=== PATIENT | female | born 1950 | race Caucasian/White ===

== ENCOUNTER 2016-07-07 14:09 | Emergency (ER) | payer MEDICARE, OTHER ==
[2016-07-07] MEDS ORDERED: ONDANSETRON 4 MG TAB.RAPDIS SL ONE (15:01)
--- NOTE | 2016-07-07 15:01 | ER Document Report ---
ED Medical Screen (RME) - General Chief Complaint: Abdominal Pain Stated Complaint: ABDOMINAL PAIN Time seen by provider: 15:00 Mode of Arrival: Ambulatory Information source: Patient TRAVEL OUTSIDE OF THE U.S[place] IN LAST 30 DAYS: No - HPI Patient complains to provider of: right upper quadrant pain, nausea vomiting, dysuria Onset: Other - 3 weeks with worsening over the past 3 days Onset/Duration: Persistent, Worse Quality of pain: Sharp Severity: Moderate Pain Level: 4 Associated Symptoms: Chills, Dysuria, Nausea, Vomiting Exacerbated by: Denies Relieved by: Denies Similar symptoms previously: No Recently seen / treated by doctor: Yes Notes: 07/07/16 15:00 Patient is a 66-year-old female sent from the [place] for complaints of right upper quadrant abdominal pain with nausea and vomiting, abdominal pain started approximately 3 weeks ago, nausea and vomiting started 3 days ago, she reports chills but did not take her temperature at home, history of a complete hysterectomy - Related Data Allergies/Adverse Reactions: levofloxacin [From Levaquin] Allergy (Severe, Verified 07/07/16 14:17) Anaphylaxis sulfamethoxazole [From Bactrim] Allergy (Severe, Verified 07/07/16 14:17) Anaphylaxis triamcinolone acetonide [From Kenalog] Allergy (Severe, Verified 07/07/16 14:17) Anaphylaxis trimethoprim [From Bactrim] Allergy (Severe, Verified 07/07/16 14:17) Anaphylaxis cephalexin monohydrate [From Keflex] Allergy (Intermediate, Verified 07/07/16 14 :17) Flushing latex [Latex] Allergy (Intermediate, Verified 07/07/16 14:17) Blisters prednisone [Prednisone] Allergy (Intermediate, Verified 07/07/16 14:17) Flushing Past Medical History - Past Medical History Cardiac Medical History: Reports: Hx Hypercholesterolemia, Hx Hypertension Denies: Hx Atrial Fibrillation, Hx Congestive Heart Failure, Hx Coronary Artery Disease, Hx Heart Attack, Hx Peripheral Vascular Disease, Hx Pulmonary Embolism, Hx Heart Murmur Pulmonary Medical History: Reports: Hx Asthma, Hx Bronchitis, Hx COPD, Hx Pneumonia Denies: Hx Respiratory Failure, Hx Sleep Apnea, Hx Tuberculosis Neurological Medical History: Denies: Hx Cerebrovascular Accident, Hx Seizures Endocrine Medical History: Reports: Hx Hypothyroidism. Denies: Hx Graves' Disease, Hx Hyperthyroidism Renal/ Medical History: Reports: Hx Ovarian Cysts. Denies: Hx End Stage Renal Disease, Hx Kidney Stones, Hx Peritoneal Dialysis, Hx Pelvic Inflammatory Disease Malignancy Medical History: Denies: Hx Breast Cancer, Hx Cervical Cancer, Hx Leukemia, Hx Lung Cancer, Hx Ovarian Cancer GI Medical History: Reports: Hx Gastroesophageal Reflux Disease, Hx Hiatal Hernia, Hx Irritable Bowel. Denies: Hx Crohn's Disease, Hx Liver Failure, Hx Ulcer Musculoskeltal Medical History: Reports Hx Arthritis - hands, knees, spine, Denies Hx Fibromyalgia, Denies Hx Multiple Sclerosis, Denies Hx Muscular Dystrophy Psychiatric Medical History: Reports: Hx Bipolar Disorder, Hx Depression, Hx Post Traumatic Stress Disorder Denies: Hx Dementia, Hx Schizophrenia Traumatic Medical History: Reports: Hx Fractures Infectious Medical History: Denies: Hx HIV Past Surgical History: Reports: Hx Tonsillectomy - 1953. Denies: Hx Appendectomy, Hx Bowel Surgery, Hx Colostomy, Hx Coronary Artery Bypass Graft, Hx Gastric Bypass Surgery, Hx Hysterectomy, Hx Mastectomy, Hx Pacemaker - Immunizations Hx Diphtheria, Pertussis, Tetanus Vaccination: Yes - 03/07/04 Physical Exam - Vital signs Vitals: Temp Pulse Resp BP Pulse Ox 98.3 F 80 18 156/80 H 98 07/07/16 14:17 07/07/16 14:17 07/07/16 14:17 07/07/16 14:17 07/07/16 14:17 Course - Vital Signs Vital signs: Temp Pulse Resp BP Pulse Ox 98.3 F 80 18 156/80 H 98 07/07/16 14:17 07/07/16 14:17 07/07/16 14:17 07/07/16 14:17 07/07/16 14:17
[2016-07-07 15:25] LABS: ABSOLUTE EOSINOPHILS # (AUTO) 0.1 10^3/uL (0.0-0.6); ABSOLUTE LYMPHOCYTES (AUTO) 3.4 10^3/uL (0.5-4.7); ABSOLUTE MONOCYTES (AUTO) 0.4 10^3/uL (0.1-1.4); ABSOLUTE NEUT (AUTO) 4.3 10^3/uL (1.7-8.2); BASOPHILS % (AUTO) 0.3 % (0-2); EOSINOPHILS % (AUTO) 1.2 % (0-6); HEMATOCRIT 38.3 % (36.0-47.0); HEMOGLOBIN 12.9 g/dL (12.0-15.5); HGB HCT DIFFERENCE 0.4; MEAN CORPUSCULAR HEMOGLOBIN 30.9 pg (27.0-33.4); MEAN CORPUSCULAR HGB CONC 33.7 g/dL (32.0-36.0); MEAN CORPUSCULAR VOLUME 92 fl (80-97); MONOCYTES % (AUTO) 5.3 % (3-13); RED BLOOD COUNT 4.18 10^6/uL (3.72-5.28); RED CELL DISTRIBUTION WIDTH 13.9 % (11.5-14.0); SEGMENTED NEUTROPHILS % (AUTO) 52.2 % (42-78); WHITE BLOOD COUNT 8.2 10^3/uL (4.0-10.5)
[2016-07-07 15:46] LABS: ALANINE AMINOTRANSFERASE 42 U/L (9-52); ALBUMIN 4.5 g/dL (3.5-5.0); ALKALINE PHOSPHATASE 94 U/L (38-126); ANION GAP 15 (5-19); ASPARTATE AMINO TRANSFERASE 37 U/L (14-36); BILIRUBIN,DIRECT 0.2 mg/dL (0.0-0.4); BILIRUBIN,TOTAL 0.4 mg/dL (0.2-1.3); BLOOD UREA NITROGEN 18 mg/dL (7-20); CALCIUM 10.1 mg/dL (8.4-10.2); CARBON DIOXIDE 27 mmol/L (22-30); CHLORIDE 104 mmol/L (98-107); CREATININE RESULT 0.74 mg/dL (0.52-1.25); GLUCOSE 109 mg/dL (75-110); LIPASE 89.7 U/L (23-300); POTASSIUM 4.1 mmol/L (3.6-5.0); SODIUM 145.5 mmol/L (137-145); TOTAL PROTEIN 7.8 g/dL (6.3-8.2)
--- NOTE | 2016-07-07 17:03 | ER Document Report ---
ED GI/ - General Chief Complaint: Abdominal Pain Stated Complaint: ABDOMINAL PAIN Mode of Arrival: Ambulatory Notes: Patient is a 66-year-old female who presents emergency department after referral from the [place] [facility]. Patient states that she has had a three-week history of her quadrant abdominal pain that gets worse postprandial. With associated nausea and vomiting. She denies any diarrhea, hematemesis or hematochezia, bright red blood per rectum. She also admits to generalized weakness and malaise. She denies any fevers. Admits to chills. She also admits to dysuria and urgency. Denies pyuria. Denies any history of gallbladder disease. Still has her gallbladder and appendix. Past medical history significant for hypothyroidism on levothyroxine, bipolar disorder on gabapentin Past surgical history significant for hysterectomy, spinal fusion and cervical and lumbar. Primary care is at the [place] TRAVEL OUTSIDE OF THE [place] IN LAST 30 DAYS: No - Related Data Allergies/Adverse Reactions: levofloxacin [From Levaquin] Allergy (Severe, Verified 07/07/16 14:17) Anaphylaxis sulfamethoxazole [From Bactrim] Allergy (Severe, Verified 07/07/16 14:17) Anaphylaxis triamcinolone acetonide [From Kenalog] Allergy (Severe, Verified 07/07/16 14:17) Anaphylaxis trimethoprim [From Bactrim] Allergy (Severe, Verified 07/07/16 14:17) Anaphylaxis cephalexin monohydrate [From Keflex] Allergy (Intermediate, Verified 07/07/16 14 :17) Flushing latex [Latex] Allergy (Intermediate, Verified 07/07/16 14:17) Blisters prednisone [Prednisone] Allergy (Intermediate, Verified 07/07/16 14:17) Flushing Past Medical History - General Information source: Patient - Social History Smoking Status: Never Smoker Family History: Reviewed & Not Pertinent Patient has suicidal ideation: No Patient has homicidal ideation: No - Past Medical History Cardiac Medical History: Reports: Hx Hypercholesterolemia, Hx Hypertension Denies: Hx Atrial Fibrillation, Hx Congestive Heart Failure, Hx Coronary Artery Disease, Hx Heart Attack, Hx Peripheral Vascular Disease, Hx Pulmonary Embolism, Hx Heart Murmur Pulmonary Medical History: Reports: Hx Asthma, Hx Bronchitis, Hx COPD, Hx Pneumonia Denies: Hx Respiratory Failure, Hx Sleep Apnea, Hx Tuberculosis Neurological Medical History: Denies: Hx Cerebrovascular Accident, Hx Seizures Endocrine Medical History: Reports: Hx Hypothyroidism. Denies: Hx Graves' Disease, Hx Hyperthyroidism Renal/ Medical History: Reports: Hx Ovarian Cysts. Denies: Hx End Stage Renal Disease, Hx Kidney Stones, Hx Peritoneal Dialysis, Hx Pelvic Inflammatory Disease Malignancy Medical History: Denies: Hx Breast Cancer, Hx Cervical Cancer, Hx Leukemia, Hx Lung Cancer, Hx Ovarian Cancer GI Medical History: Reports: Hx Gastroesophageal Reflux Disease, Hx Hiatal Hernia, Hx Irritable Bowel. Denies: Hx Crohn's Disease, Hx Liver Failure, Hx Ulcer Musculoskeltal Medical History: Reports Hx Arthritis - hands, knees, spine, Denies Hx Fibromyalgia, Denies Hx Multiple Sclerosis, Denies Hx Muscular Dystrophy Psychiatric Medical History: Reports: Hx Bipolar Disorder, Hx Depression, Hx Post Traumatic Stress Disorder Denies: Hx Dementia, Hx Schizophrenia Traumatic Medical History: Reports: Hx Fractures Infectious Medical History: Denies: Hx HIV Past Surgical History: Reports: Hx Tonsillectomy - 1953. Denies: Hx Appendectomy, Hx Bowel Surgery, Hx Colostomy, Hx Coronary Artery Bypass Graft, Hx Gastric Bypass Surgery, Hx Hysterectomy, Hx Mastectomy, Hx Pacemaker - Immunizations Hx Diphtheria, Pertussis, Tetanus Vaccination: Yes - 03/07/04 Hx Pneumococcal Vaccination: 12/06/15 Review of Systems - Review of Systems Constitutional: See HPI Cardiovascular: No symptoms reported Respiratory: No symptoms reported Gastrointestinal: See HPI -: Yes All other systems reviewed and negative Physical Exam - Vital signs Vitals: Temp Pulse Resp BP Pulse Ox 98.3 F 80 18 156/80 H 98 07/07/16 14:17 07/07/16 14:17 07/07/16 14:17 07/07/16 14:17 07/07/16 14:17 - Notes Notes: PHYSICAL EXAM GENERAL: Alert, interacts well. HEAD: Normocephalic, atraumatic. EYES: Pupils equal, round, and reactive to light. Extraocular movements intact. ENT: Oral mucosa moist, tongue midline. NECK: Full range of motion. Supple. Trachea midline. LUNGS: Clear to auscultation bilaterally, no wheezes, rales, or rhonchi. No respiratory distress. HEART: Regular rate and rhythm. No murmurs, gallops, or rubs. ABDOMEN: Soft, nondistended, mild tenderness to palpation of the right upper quadrant. Positive Gómez sign. Otherwise abdomen nontender. No guarding, rebound, or rigidity.. Bowel sounds present in all 4 quadrants. EXTREMITIES: Moves all 4 extremities spontaneously. No edema, radial and dorsalis pedis pulses 2/4 bilaterally. No cyanosis. NEUROLOGICAL: Alert and oriented x4. Normal speech. PSYCH: Normal affect, normal mood. SKIN: Warm, dry, normal turgor. No rashes or lesions noted. Course - Re-evaluation Re-evalutation: 07/07/16 18:16 Patient is a 66 year old female who is hemodynamically stable, no acute distress and afebrile. Labs within normal limits, no concern for leukocytosis, anemia, electrolyte abnormalities, liver/kidney/pancreatic dysfunction. Ultrasound of the right upper quadrant shows sludge within the gallbladder but otherwise no stones within the gallbladder or common bile duct. Patient is tolerating by mouth without any difficulty. Pain is well controlled. We'll discharge home with [facility] - Vital Signs Vital signs: Temp Pulse Resp BP Pulse Ox 98.3 F 80 18 156/80 H 98 07/07/16 14:17 07/07/16 14:17 07/07/16 14:17 07/07/16 14:17 07/07/16 14:17 - Laboratory Result Diagrams: 07/07/16 15:10 07/07/16 15:10 Laboratory results interpreted by me: 07/07/16 15:10 Sodium 145.5 H AST 37 H - Diagnostic Test Radiology reviewed: Reports reviewed Discharge - Discharge Clinical Impression: Gall bladder disease Condition: Good Disposition: HOME, SELF-CARE Instructions: Gallbladder Disease ([facility]), Low-Fat Diet ([facility]) Additional Instructions: [facility] regarding your visit this week or next Prescriptions: Ondansetron [Zofran Odt 4 mg Tablet] 1 - 2 tab PO Q4H PRN #15 tab.rapdis PRN Reason: For Nausea/Vomiting Oxycodone HCl/Acetaminophen [Percocet 5-325 mg Tablet] 1 - 2 tab PO Q4H PRN #10 tablet PRN Reason: Promethazine HCl [Phenergan 25 mg Tablet] 1 - 2 tab PO Q6H PRN #15 tablet PRN Reason: Forms: Elevated Blood Pressure Referrals: MICKEY ROSA MD [ACTIVE STAFF] - Follow up as needed
[2016-07-07 17:05] LABS: APPEARANCE,URINE CLEAR; BILIRUBIN,URINE NEGATIVE (NEGATIVE); GLUCOSE, URINE NEGATIVE (NEGATIVE); KETONES,URINE NEGATIVE (NEGATIVE); LEUKOCYTE ESTERASE,URINE NEGATIVE (NEGATIVE); NITRITE,URINE NEGATIVE (NEGATIVE); PROTEIN,URINE NEGATIVE (NEGATIVE); URINE SPECIFIC GRAVITY 1.004; UROBILINOGEN,URINE NEGATIVE mg/dL (<2.0)
--- NOTE | 2016-07-07 18:58 | EKG REPORT ---
SEVERITY:- ABNORMAL ECG - SINUS RHYTHM LEFT VENTRICULAR HYPERTROPHY : Confirmed by: Gildardo Costello MD 07-Jul-2016 18:57:48
[2016-07-08 11:37] VITALS: BP 152/81
== END 2016-07-07 17:58 | disposition home or self-care (01) ==
LOC: ER 14:09
DX: K82.8 Other specified diseases of gallbladder (principal); R10.9 Unspecified abdominal pain; R10.811 Right upper quadrant abdominal tenderness; R11.2 Nausea with vomiting, unspecified; R53.1 Weakness; R53.81 Other malaise; R68.83 Chills (without fever); R30.0 Dysuria; R39.15 Urgency of urination; J44.9 Chronic obstructive pulmonary disease, unspecified; I10 Essential (primary) hypertension; E03.9 Hypothyroidism, unspecified; F31.9 Bipolar disorder, unspecified; Z79.899 Other long term (current) drug therapy; Z90.710 Acquired absence of both cervix and uterus; Z98.1 Arthrodesis status; Z91.040 Latex allergy status; Z87.892 Personal history of anaphylaxis; Z88.1 Allergy status to other antibiotic agents; Z88.8 Allergy status to other drugs, medicaments and biological substances; Z87.42 Personal history of other diseases of the female genital tract
CPT/HCPCS: 93005; 99284; 36415; 87086; 83690; 85025; 80053; 81001; 76705; 93010; A9270; S0119

== ENCOUNTER 2016-09-30 07:22 | Day surgery (SDC) | payer OTHER, MEDICARE ==
[2016-09-29 13:18] LABS: HEMATOCRIT 39.4 % (36.0-47.0); HEMOGLOBIN 13.1 g/dL (12.0-15.5); HGB HCT DIFFERENCE -0.1; MEAN CORPUSCULAR HEMOGLOBIN 30.9 pg (27.0-33.4); MEAN CORPUSCULAR HGB CONC 33.3 g/dL (32.0-36.0); MEAN CORPUSCULAR VOLUME 93 fl (80-97); RED BLOOD COUNT 4.25 10^6/uL (3.72-5.28); RED CELL DISTRIBUTION WIDTH 13.3 % (11.5-14.0); WHITE BLOOD COUNT 8.4 10^3/uL (4.0-10.5)
[2016-09-29 13:42] LABS: ALANINE AMINOTRANSFERASE 38 U/L (9-52); ALBUMIN 4.5 g/dL (3.5-5.0); ALKALINE PHOSPHATASE 95 U/L (38-126); AMYLASE 57 U/L (30-110); ANION GAP 12 (5-19); ASPARTATE AMINO TRANSFERASE 37 U/L (14-36); BILIRUBIN,DIRECT 0.4 mg/dL (0.0-0.4); BILIRUBIN,TOTAL 0.4 mg/dL (0.2-1.3); BLOOD UREA NITROGEN 14 mg/dL (7-20); CARBON DIOXIDE 26 mmol/L (22-30); CHLORIDE 106 mmol/L (98-107); CREATININE RESULT 0.84 mg/dL (0.52-1.25); GLUCOSE 97 mg/dL (75-110); POTASSIUM 4.4 mmol/L (3.6-5.0); SODIUM 143.5 mmol/L (137-145); TOTAL PROTEIN 7.9 g/dL (6.3-8.2)
[~2016-09-30 07:22] MED LIST: ACETAMINOPHEN 100 ML IV ONE; ACETAMINOPHEN 325 MG TABLET PO PRN; BUPIVACAINE HCL 0.25 % INJ/PF (2.5 MG/1 ML) 30 ML VIAL ONE; CIPROFLOXACIN 400 MG/D5W RTU 400 MG/200 ML RTUPB IV PRN; CLINDAMYCIN 600 MG/D5W RTU 600 MG/50 ML RTUPB IV PRN; FENTANYL CITRATE INJ/PF 100 MCG/2 ML AMPUL ONE; HYDROMORPHONE HCL INJ/PF 2 MG/ML AMPULE ONE; KETAMINE HCL INJ 500 MG/10 ML VIAL ONE; LACTATED RINGERS 1000 ML IV PRN; MIDAZOLAM 2 MG/2 ML INJ ONE; PROPOFOL INJ 200 MG/20 ML VIAL IV ONE
--- NOTE | 2016-09-30 09:26 | Operative Report ---
Operative Report DATE OF SURGERY: 09/30/16 PREOPERATIVE DIAGNOSIS: Biliary dyskinesia POSTOPERATIVE DIAGNOSIS: Biliary dyskinesia OPERATION: Laparoscopic cholecystectomy SURGEON: MICKEY ROSA ANESTHESIA: GA TISSUE REMOVED OR ALTERED: 1 gallbladder COMPLICATIONS: None ESTIMATED BLOOD LOSS: Scant INTRAOPERATIVE FINDINGS: See below PROCEDURE: Patient was taken to the operating room where general anesthesia was induced. Arms abducted abdomen exposed prepped and draped with Betadine. Inserted a set of a laparoscopic cholecystectomy. Surgical plan and surgical timeout were conducted Supraumbilical vertical incision made with a knife and Veress needle inserted peritoneal cavity pneumoperitoneum was established. Veress needle removed 5 mm ports inserted a 5 mm viewing scope was inserted. Under direct visualization 3 additional ports were placed 2 in the subxiphoid position and one in the subcostal position. Findings are significant for moderately distended gallbladder. Gallbladder was grasped in the fundus and infundibulum and reflected up of the liver bed. The neck of the gallbladder its junction with the cystic duct was dissected out. The anatomy here was typical. [place] was opened widely, photographed, cystic duct clipped twice proximally once distally divided with scissors. Cystic artery was in its location as predicted. It was clipped twice proximally once distally divided with scissors. Gallbladder was removed from the liver bed using hook cautery dissection, brought the patient is super umbilical port site. Return the peritoneal cavity check for bleeding there was none. Clips were in good position final photograph taken. We felt the operation was complete. Sponge and counts correct. All ports removed under direct visualization pneumoperitoneum evacuated was closed with 0 Vicryl 3-0 Vicryl benzoin Steri-Strips and quarter percent Marcaine applied. Patient tolerated procedure well, extubated, taken recovery in stable condition.
--- NOTE | 2016-09-30 09:28 | PDOC DISCHARGE SUMMARY ---
Discharge Summary (SDC) - Discharge Final Diagnosis: Biliary dyskinesia Date of Surgery: 09/30/16 Discharge Date: 09/30/16 Condition: Good Treatment or Instructions: [facility] [address], [place] [address] Discharge Instructions: Laparoscopic Surgery 1. General Information: a. DO NOT DRIVE a car or operate dangerous machinery for 3-4 days or while taking narcotic pain pills. b. DO NOT consume alcohol, tranquilizers, sleeping medications or any non- prescribed medications for 24 hours unless approved by your doctor or as long as taking narcotic prescription medications. c. DO NOT make important decisions or sign any important papers for the first 24 hours after surgery. d. When discharged home the same day of surgery have a responsible person with you for the first night. 2. Activity Restrictions: 2 weeks. a. NO heavy lifting, straining abdominal muscles, bending over a lot, yard work, house work, or sports for [address] for 3-4 days or while taking pain medication . c. It is fine to go for walks, up and down steps, ride in a car. d. Elevate your head when sleeping/resting. 3. Treatment: a. You may shower 24 hours after surgery, no baths or swimming for 2 weeks. Remove band-aids or dressings before shower but leave paper strips (steri-strips ) on the skin to fall off on their own. If still on at postoperative visit they will be removed then. b. Drainage of fluid or blood is not unusual from an incision. If occurs, you can clean with peroxide and cotton ball daily and cover with dry gauze until the wound seals. c. If a lot of bleeding occurs, you can hold pressure with a gauze or cloth over the site for 10 minutes and it will usually stop. If bleeding continues you will need to call for possible evaluation in office or emergency room. 4. Medications: a. Toradol_ may be taken for pain as needed, one or two tablets every 4-6 hours. Stop the narcotic when able since you cannot take it and drive, and they cause constipation. You may switch to plain Tylenol, Advil or Aleve as you transition from the narcotic. Many adults find good pain relief with Advil 600- 800 mg three times a day with meals. This can cause indigestion, ulcers, and kidney problems with long-term use. b. You should resume all normal medications unless a change is specified by your doctors. c. Begin with clear liquids and may progress to your normal diet if not nauseated. No high fat, high protein foods the day of surgery. Normal diet 6. The following may occur after laparoscopic surgery: a. Shoulder or upper back ache from retained gas that should resolve in 1-2 days b. Soreness and bruising at incision sites will resolve with time. c. Scrotal swelling (labia in women) and bruising is often seen after hernia surgery. d. Sore throat e. Fatigue may last days to weeks. f. Difficulty urinating may occur and may need to come into emergency room for urinary catheter placement. 7. Notify Physician If: a. Worsening or pain not improved with pain medication b. Persistent nausea and vomiting c. Fever above 101 d. Persistent bleeding or swelling at operative site e. Unable to urinate and uncomfortable bladder 6-8 hours after surgery 8..Follow Up Care: a. Schedule a follow up appointment with your doctor for 2 weeks. In the event of any postoperative problems or questions or you may call the office during business hours or the On-Call physician evenings and weekends at [facility]. [facility] I understand the instructions for my postoperative care as described above and a copy has been given to me. Patient/Significant Other Witness Date Prescriptions: Ketorolac Tromethamine [Toradol 10 mg Tablet] 10 mg PO Q6HP PRN #14 tablet PRN Reason: Discharge Diet: As Tolerated Discharge Activity: Activity As Tolerated, No Lifting Over 10 Pounds Home Care Assistance: None Needed Report the Following to Your Physician Immediately: Shortness of Breath, Increase in Pain, Fever over 101 Degrees
[2016-09-30] MEDS ORDERED: NALOXONE HCL INJ/PF 0.4 MG/1 ML SDV ONE (09:37)
[2016-09-30] MEDS: FENTANYL CITRATE INJ/PF 100 MCG/2 ML AMPUL ONE ×2 (10:08→10:19)
[2016-09-30] MEDS ORDERED: FENTANYL CITRATE INJ/PF 100 MCG/2 ML AMPUL IV PRN ×3 (10:22)
[2016-09-30] MEDS ORDERED: PROMETHAZINE HCL INJ 25 MG/1 ML VIAL IV PRN (10:22)
[2016-09-30] MEDS ORDERED: DIPHENHYDRAMINE HCL 50 MG/ML VIAL IV PRN (10:22)
[2016-09-30] MEDS ORDERED: OXYCODONE-ACETAMINOPHEN 5-325 MG TABLET ONE (11:11)
[2016-09-30] MEDS ORDERED: ROCURONIUM BROMIDE INJ 50 MG/5 ML VIAL IV ONE (12:07)
[2016-09-30] MEDS ORDERED: ONDANSETRON HCL INJ/PF 4 MG/2 ML SDV ONE (12:07)
[2016-09-30] MEDS ORDERED: DEXAMETHASONE SOD PHOSPHATE INJ 4 MG/1 ML VIAL ONE (12:07)
[2016-09-30] MEDS ORDERED: NEOSTIGMINE METHYLSULFATE 10 MG/10 ML VIAL ONE (12:07)
[2016-09-30] MEDS ORDERED: LIDOCAINE 2% INJ-PF (20 MG/ML) 10 ML AMPUL ONE (12:07)
[2016-09-30] MEDS ORDERED: GLYCOPYRROLATE INJ 0.4 MG/2 ML VIAL ONE (12:07)
[2016-09-30 12:51] VITALS: BP 105/58
== END 2016-09-30 12:30 | disposition home or self-care (01) ==
LOC: OROUT 07:22
PROVIDERS: ATTEND Surgery
PROC: 0FT44ZZ Resection of Gallbladder, Percutaneous Endoscopic Approach (ICD-10-PCS; principal; 2016-09-30 08:30)
DX: K80.10 Calculus of gallbladder with chronic cholecystitis without obstruction (principal); K76.0 Fatty (change of) liver, not elsewhere classified; E03.9 Hypothyroidism, unspecified; F31.30 Bipolar disorder, current episode depressed, mild or moderate severity, unspecified; I10 Essential (primary) hypertension; G71.2 Congenital myopathies; K21.9 Gastro-esophageal reflux disease without esophagitis; F90.9 Attention-deficit hyperactivity disorder, unspecified type; I20.9 Angina pectoris, unspecified; D64.9 Anemia, unspecified; Z88.3 Allergy status to other anti-infective agents; Z79.891 Long term (current) use of opiate analgesic; Z79.899 Other long term (current) drug therapy; Z86.73 Personal history of transient ischemic attack (TIA), and cerebral infarction without residual deficits
CPT/HCPCS: 36415; 82150; 85027; 80076; 80048; 88304 ×2; 47562; J2250; J3490 ×3; J1100; J3010; J2310; J1170; J2405; J2704; J0131; 790

== ENCOUNTER 2016-12-15 10:23 | Emergency (ER) | payer OTHER, MEDICARE ==
--- NOTE | 2016-12-15 10:53 | ER Document Report ---
ED Medical Screen (RME) - General Chief Complaint: Abdominal Pain Stated Complaint: ABDOMINAL PAIN Time Seen by Provider: 12/15/16 10:51 Notes: Patient reports that she has got severe epigastric and right upper quadrant abdominal pain. Does radiate to her back. She has severe nausea but no vomiting. She has had decreased appetite. She also felt constipated. She states that she had similar pain when she had her gallbladder removed but it was not this severe. She says the pain seemed to start after she had a lumbar MRI last . [facility] TRAVEL OUTSIDE OF THE U.S. IN LAST 30 DAYS: No - Related Data Allergies/Adverse Reactions: levofloxacin [From Levaquin] Allergy (Severe, Verified 12/15/16 10:35) Anaphylaxis sulfamethoxazole [From Bactrim] Allergy (Severe, Verified 12/15/16 10:35) Anaphylaxis triamcinolone acetonide [From Kenalog] Allergy (Severe, Verified 12/15/16 10:35) Anaphylaxis trimethoprim [From Bactrim] Allergy (Severe, Verified 12/15/16 10:35) Anaphylaxis cephalexin monohydrate [From Keflex] Allergy (Intermediate, Verified 12/15/16 10 :35) Flushing latex [Latex] Allergy (Intermediate, Verified 12/15/16 10:35) Blisters prednisone [Prednisone] Allergy (Intermediate, Verified 12/15/16 10:35) Flushing Past Medical History - Social History Chew tobacco use (# tins/day): No Frequency of alcohol use: None Drug Abuse: None - Past Medical History Cardiac Medical History: Reports: Hx Hypercholesterolemia, Hx Hypertension Denies: Hx Atrial Fibrillation, Hx Congestive Heart Failure, Hx Coronary Artery Disease, Hx Heart Attack, Hx Peripheral Vascular Disease, Hx Pulmonary Embolism, Hx Heart Murmur Pulmonary Medical History: Reports: Hx Asthma, Hx Bronchitis, Hx COPD, Hx Pneumonia Denies: Hx Respiratory Failure, Hx Sleep Apnea, Hx Tuberculosis Neurological Medical History: Denies: Hx Cerebrovascular Accident, Hx Seizures Endocrine Medical History: Reports: Hx Hypothyroidism. Denies: Hx Graves' Disease, Hx Hyperthyroidism Renal/ Medical History: Reports: Hx Ovarian Cysts. Denies: Hx End Stage Renal Disease, Hx Kidney Stones, Hx Peritoneal Dialysis, Hx Pelvic Inflammatory Disease Malignancy Medical History: Denies: Hx Breast Cancer, Hx Cervical Cancer, Hx Leukemia, Hx Lung Cancer, Hx Ovarian Cancer GI Medical History: Reports: Hx Gastroesophageal Reflux Disease, Hx Hiatal Hernia, Hx Irritable Bowel. Denies: Hx Crohn's Disease, Hx Liver Failure, Hx Pancreatitis, Hx Ulcer Musculoskeltal Medical History: Reports Hx Arthritis - hands, knees, spine, Denies Hx Fibromyalgia, Denies Hx Multiple Sclerosis, Denies Hx Muscular Dystrophy Psychiatric Medical History: Reports: Hx Bipolar Disorder, Hx Depression, Hx Post Traumatic Stress Disorder Denies: Hx Dementia, Hx Schizophrenia Traumatic Medical History: Reports: Hx Fractures Infectious Medical History: Denies: Hx HIV Past Surgical History: Reports: Hx Tonsillectomy - 1953. Denies: Hx Appendectomy, Hx Bowel Surgery, Hx Colostomy, Hx Coronary Artery Bypass Graft, Hx Gastric Bypass Surgery, Hx Hysterectomy, Hx Mastectomy, Hx Pacemaker - Immunizations Hx Diphtheria, Pertussis, Tetanus Vaccination: Yes - 03/07/04 Physical Exam - Vital signs Vitals: Temp Pulse Resp Pulse Ox 98.7 F 75 16 98 12/15/16 10:32 12/15/16 10:32 12/15/16 10:32 12/15/16 10:32 Course - Vital Signs Vital signs: Temp Pulse Resp BP Pulse Ox 98.7 F 75 16 98 12/15/16 10:32 12/15/16 10:32 12/15/16 10:32 12/15/16 10:32
[2016-12-15 11:32] LABS: ABSOLUTE EOSINOPHILS # (AUTO) 0.2 10^3/uL (0.0-0.6); ABSOLUTE LYMPHOCYTES (AUTO) 3.4 10^3/uL (0.5-4.7); ABSOLUTE MONOCYTES (AUTO) 0.3 10^3/uL (0.1-1.4); ABSOLUTE NEUT (AUTO) 4.9 10^3/uL (1.7-8.2); BASOPHILS % (AUTO) 0.3 % (0-2); EOSINOPHILS % (AUTO) 2.3 % (0-6); HEMATOCRIT 37.1 % (36.0-47.0); HEMOGLOBIN 12.6 g/dL (12.0-15.5); HGB HCT DIFFERENCE 0.7; LYMPHOCYTES % (AUTO) 38.6 % (13-45); MEAN CORPUSCULAR HEMOGLOBIN 31.1 pg (27.0-33.4); MEAN CORPUSCULAR VOLUME 92 fl (80-97); MONOCYTES % (AUTO) 3.5 % (3-13); RED BLOOD COUNT 4.06 10^6/uL (3.72-5.28); RED CELL DISTRIBUTION WIDTH 14.3 % (11.5-14.0); SEGMENTED NEUTROPHILS % (AUTO) 55.3 % (42-78); WHITE BLOOD COUNT 8.9 10^3/uL (4.0-10.5)
[2016-12-15 11:47] LABS: APPEARANCE,URINE CLEAR; BILIRUBIN,URINE NEGATIVE (NEGATIVE); GLUCOSE, URINE NEGATIVE (NEGATIVE); KETONES,URINE NEGATIVE (NEGATIVE); LEUKOCYTE ESTERASE,URINE TRACE (NEGATIVE); NITRITE,URINE NEGATIVE (NEGATIVE); PROTEIN,URINE NEGATIVE (NEGATIVE); URINE SPECIFIC GRAVITY 1.006; UROBILINOGEN,URINE NEGATIVE mg/dL (<2.0)
[2016-12-15 11:49] LABS: ALANINE AMINOTRANSFERASE 35 U/L (9-52); ALBUMIN 4.6 g/dL (3.5-5.0); ALKALINE PHOSPHATASE 88 U/L (38-126); ANION GAP 16 (5-19); ASPARTATE AMINO TRANSFERASE 25 U/L (14-36); BILIRUBIN,DIRECT 0.4 mg/dL (0.0-0.4); BILIRUBIN,TOTAL 0.4 mg/dL (0.2-1.3); BLOOD UREA NITROGEN 14 mg/dL (7-20); CALCIUM 10.2 mg/dL (8.4-10.2); CARBON DIOXIDE 25 mmol/L (22-30); CHLORIDE 104 mmol/L (98-107); CREATININE RESULT 0.86 mg/dL (0.52-1.25); GLUCOSE 89 mg/dL (75-110); LIPASE 98.8 U/L (23-300); POTASSIUM 4.3 mmol/L (3.6-5.0); TOTAL PROTEIN 7.9 g/dL (6.3-8.2)
--- NOTE | 2016-12-15 12:26 | ER Document Report ---
ED GI/ <MARALRYAN ChengCLIFTON - Last Filed: 12/15/16 14:29> - General Mode of Arrival: Ambulatory Information source: Patient TRAVEL OUTSIDE OF THE [place] IN LAST 30 DAYS: No - HPI Patient complains to provider of: Abdominal pain <BIANCA CRUMP - Last Filed: 12/15/16 15:34> - General Chief Complaint: Abdominal Pain Stated Complaint: ABDOMINAL PAIN Time Seen by Provider: 12/15/16 10:51 Notes: Patient is a 66-year-old female who presents to the emergency department today with complaints of abdominal pain of a one-week duration. Patient states she feels like the pain sometimes radiates to her back on both sides. Patient states she had a cholecystectomy in September and has had intermittent abdominal pain since then but it has gotten worse in the last week. Patient states she feels constipated but sometimes has diarrhea. Patient states she has been nauseated but denies any fevers. (BIANCA CRUMP) - Related Data Allergies/Adverse Reactions: levofloxacin [From Levaquin] Allergy (Severe, Verified 12/15/16 10:35) Anaphylaxis sulfamethoxazole [From Bactrim] Allergy (Severe, Verified 12/15/16 10:35) Anaphylaxis triamcinolone acetonide [From Kenalog] Allergy (Severe, Verified 12/15/16 10:35) Anaphylaxis trimethoprim [From Bactrim] Allergy (Severe, Verified 12/15/16 10:35) Anaphylaxis cephalexin monohydrate [From Keflex] Allergy (Intermediate, Verified 12/15/16 10 :35) Flushing latex [Latex] Allergy (Intermediate, Verified 12/15/16 10:35) Blisters prednisone [Prednisone] Allergy (Intermediate, Verified 12/15/16 10:35) Flushing Past Medical History - General Information source: Patient - Social History Smoking Status: Never Smoker Cigarette use (# per day): No Chew tobacco use (# tins/day): No Frequency of alcohol use: None Drug Abuse: None Lives with: Family Family History: Reviewed & Not Pertinent - Past Medical History Cardiac Medical History: Reports: Hx Hypercholesterolemia, Hx Hypertension Pulmonary Medical History: Reports: Hx Asthma, Hx Bronchitis, Hx COPD, Hx Pneumonia Endocrine Medical History: Reports: Hx Hypothyroidism Renal/ Medical History: Reports: Hx Ovarian Cysts GI Medical History: Reports: Hx Gastroesophageal Reflux Disease, Hx Hiatal Hernia, Hx Irritable Bowel Musculoskeltal Medical History: Reports Hx Arthritis - hands, knees, spine Psychiatric Medical History: Reports: Hx Bipolar Disorder, Hx Depression, Hx Post Traumatic Stress Disorder Traumatic Medical History: Reports: Hx Fractures Past Surgical History: Reports: Hx Tonsillectomy - 1953 - Immunizations Hx Diphtheria, Pertussis, Tetanus Vaccination: Yes - 03/07/04 Hx Pneumococcal Vaccination: 12/06/15 <BIANCA CRUMP - Last Filed: 12/15/16 15:34> Review of Systems - Review of Systems Constitutional: denies: Fever EENT: No symptoms reported Cardiovascular: No symptoms reported Respiratory: No symptoms reported Gastrointestinal: See HPI, Abdominal pain, Diarrhea, Nausea, Constipation Genitourinary: No symptoms reported Female Genitourinary: No symptoms reported Musculoskeletal: See HPI, Back pain Skin: No symptoms reported Hematologic/Lymphatic: No symptoms reported Neurological/Psychological: No symptoms reported -: Yes All other systems reviewed and negative <BIANCA CRUMP - Last Filed: 12/15/16 15:34> Physical Exam <CLIFTON ALICIA - Last Filed: 12/15/16 14:29> <BIANCA CRUMP - Last Filed: 12/15/16 15:34> - Vital signs Vitals: Temp Pulse Resp Pulse Ox 98.7 F 75 16 98 12/15/16 10:32 12/15/16 10:32 12/15/16 10:32 12/15/16 10:32 - Notes Notes: Physical Exam: General: Alert, appears well. HEENT: Normocephalic. Atraumatic. PERRL. Extraocular movements intact. Oropharynx clear. Neck: Supple. Non-tender. Respiratory: No respiratory distress. Clear and equal breath sounds bilaterally. Cardiovascular: Regular rate and rhythm. Abdominal: Obese. Left lower quadrant and periumbilical tenderness to palpation. No distension. Normal Bowel Sounds. Back: Bilateral paraspinal lumbar musculature tenderness to palpation. No deformity or step off. Extremities: Moves all four extremities. Upper extremities: Normal inspection. Normal ROM. Lower extremities: Normal inspection. No edema. Normal ROM. Neurological: Normal cognition. AAOx4. Normal speech. Psychological: Normal affect. Normal Mood. Skin: Warm. Dry. Normal color. (BIANCA CRUMP) Course - Laboratory Result Diagrams: 12/15/16 11:10 12/15/16 11:10 - Diagnostic Test Radiology reviewed: Image reviewed, Reports reviewed - AAS--a lot of stool in the ascending colon, otherwise unremarkable. <CLIFTON ALICIA - Last Filed: 12/15/16 14:29> - Laboratory Result Diagrams: 12/15/16 11:10 12/15/16 11:10 <BIANCA CRUMP - Last Filed: 12/15/16 15:34> - Vital Signs Vital signs: Temp Pulse Resp BP Pulse Ox 97.7 F 69 16 160/85 H 99 12/15/16 14:40 12/15/16 14:40 12/15/16 14:40 12/15/16 14:40 12/15/16 14:40 - Laboratory Laboratory results interpreted by me: 12/15/16 12/15/16 11:10 11:10 RDW 14.3 H Ur Leukocyte Esterase TRACE H Discharge <CLIFTON ALICIA - Last Filed: 12/15/16 14:29> <BIANCA CRUMP - Last Filed: 12/15/16 15:34> - Discharge Clinical Impression: Abdominal pain Qualifiers: Abdominal location: periumbilical Qualified Code(s): R10.33 - Periumbilical pain Constipation Qualifiers: Constipation type: unspecified constipation type Qualified Code(s): K59.00 - Constipation, unspecified Condition: Stable Disposition: HOME, SELF-CARE Additional Instructions: Abdominal Pain There are many causes of abdominal pain. Pain can mean a serious problem requiring surgery (such as appendicitis). It can also be an innocent problem that goes away on its own (such as a viral infection). Often, time must pass to determine the cause of pain. The physician does not feel that hospitalization is necessary, at present. Things may change within the next 24 hours. Call the doctor or come back for re- examination if any problems occur, such as: (1) Pain that becomes more severe, steady, or becomes concentrated in one specific area. Also, pain that is more severe with movement or coughing. (2) Vomiting that persists or becomes more frequent. (3) Blood in the vomitus, urine, or bowel movements. Blood in the stool may have a tarry or black appearance. (4) Shaking chills or fever greater than 100 degrees F. (5) The abdomen becomes more distended or swollen. (6) Bowel movements cease. (7) Failure to improve as expected. Constipation Constipation is a common problem. It is especially likely as you get older. Constipation is a common cause of abdominal pain, but sometimes causes no symptoms at all. Causes of constipation include certain medications, dehydration, diets, inactivity, and low-fiber intake. Rarely, it can be a symptom of underlying disease. The physician has evaluated you for this. Avoid constipation by eating a diet high in fiber, fruits, and vegetables. Drink plenty of liquids. Get regular exercise. If possible, avoid constipating medicines like narcotic pain medication. Some vitamin tablets can cause constipation. Stool softeners may be needed for difficult cases. An excellent stool softener is Konsyl which is available at [employer], and [employer] drug [employer]. Just add a teaspoon to a glass of pineapple or orange juice daily or twice a day if needed. Laxatives are useful for occasional constipation. You should use them only when necessary. Too-frequent use can make your bowels dependent on them. Some over the counter laxatives available without prescription are: Milk of Magnesia, 1-2 tablespoons twice a day Dulcolax, 5 mg pill or 10 mg suppository. Citrate of Magnesia, 4-5 ounces a day for a day or two For acute constipation, Fleet's Enemas and Dulcolax suppositories are helpful. Chronic, nursing home use of laxatives or enemas is not a good idea. Your bowel may become dependant on them. You do not need to have a bowel movement every day. Many people do fine with a bowel movement every three or four days. You should call your doctor or return for re-evaluation if you pass blood in the stool, or if you develop fever or increasing abdominal pain. Referrals: LUCIE DUMONT MD [Primary Care Provider] - Follow up as needed Javonibjack Attestation: 12/15/16 14:30 I personally performed the services described in the documentation, reviewed and edited the documentation which was dictated to the scribe in my presence, and it accurately records my words and actions. (CLIFTON ALICIA) Scribe Documentation - Scribe Written by Dean:: Dean Arrieta, 12/15/2016 1534 acting as scribe for :: Maral <BIANCA CRUMP - Last Filed: 12/15/16 15:34>
--- NOTE | 2016-12-15 13:49 | RADIOLOGY REPORT (SQ) ---
EXAM DESCRIPTION: ACUTE ABDOMEN SERIES COMPLETED DATE/TIME: 12/15/2016 1:23 pm REASON FOR STUDY: abd pain, diarrhea and constipation COMPARISON: None. NUMBER OF VIEWS: Three views. TECHNIQUE: Frontal chest, supine abdomen and upright/decubitus abdomen radiographic images acquired. LIMITATIONS: None. FINDINGS: CHEST: Lungs clear of infiltrates. FREE AIR: None. No abnormal gas collections. BOWEL GAS PATTERN: Nonobstructive pattern. No dilated loops or air fluid levels. Mild-moderate stool throughout the colon. CALCIFICATIONS: Suspect small phleboliths in the pelvis. HARDWARE: None in the abdomen. SOFT TISSUES: No gross mass or suggestion of organomegaly. BONES: No acute fracture. No worrisome bone lesions. OTHER: No other significant finding. IMPRESSION: NO RADIOGRAPHIC EVIDENCE FOR ACUTE ABDOMINAL DISEASE. TECHNICAL DOCUMENTATION: JOB ID: [id number] [employer]- All Rights Reserved
[2016-12-15 14:43] VITALS: BP 160/85
== END 2016-12-15 14:42 | disposition home or self-care (01) ==
LOC: ER 10:23
DX: R10.33 Periumbilical pain (principal); K59.00 Constipation, unspecified; R11.0 Nausea
CPT/HCPCS: 36415; 74022; 80053; 81001; 83690; 85025; 99284

== ENCOUNTER → 2019-08-11 | Outpatient (CLI) | payer MEDICARE, OTHER ==
[2019-08-11 13:42] VITALS: BP 134/78
--- NOTE | 2019-08-11 13:42 | ER RDC ASSESSMENT REPORT ---
Intake - In the Last 14 days Have you traveled outside [place]?: No Have you been in close contact with someone CONFIRMED: No Worked in Healthcare?: No - Symptoms Subjective Fever([place] feverish): Yes Chills: Yes Muscule Aches: Yes Runny Nose: Yes Sore Throat: Yes Cough (New or worsening chronic cough): Yes Shortness of breath: Yes Nausea or Vomiting: Yes Headache: Yes Abdominal Pain: Yes Diarrhea(3 or more loose stools in last 24 hours): Yes - Do you have any of the following Chronic lung disease: Asthma or emphysema or COPD: Yes Chronic Lung Disease Comment: Asthma and COPD Cystic Fibrosis: No Diabetes: No High Blood Pressure: Yes Cardiovascular Disease: No Chronic Kidney Disease: No Chronic Liver Disease: No Chronic blood disorder like Sickle Cell Disease: No Weak immune system due to disease or medication: No Neurologic condition that limits movement: Yes Neurological Condition Comment: Patient report tremors and Spinal nerve issues. Developmental delay - Moderate to Severe: No Recent (within past 2 weeks) or current : No Morbid Obesity (>100 pounds over ideal weight): No - Objective Temperature: 97.5 F Pulse Rate: 76 Respiratory Rate: 20 Blood Pressure: 134/78 O2 Sat by Pulse Oximetry: 86 Objective: Patient is an acutely ill-appearing 69-year-old female who presents today for COVID-19 screening. Disposition: Home; Selfcare General - General Stated Complaint: Upper respiratory symptoms x10 days Mode of Arrival: Ambulatory Information source: Patient Notes: The patient was evaluated during the global COVID-19 pandemic. That diagnosis was suspected/considered upon initial presentation. Their evaluation, treatment, and testing was consistent with current guidelines for patients who present with complaints or symptoms that may be related to COVID-19. Patient reports she was evaluated via telehealth appointment at urgent care yesterday, she was prescribed antibiotics and inhaler and steroids. She was urged to have COVID-19 testing completed. - HPI Patient complains to provider of: Upper respiratory symptoms x10 days Onset: Other - 10 days Onset/Duration: Persistent Quality of pain: Achy Severity: Moderate Pain Level: 3 Context: Generalized body aches. Associated symptoms: Body/muscle aches, Chills, Productive cough, Diarrhea, Fever, Headache, Nausea, Vomiting, Rhinnorhea, Shortness of breath, Sore throat Exacerbated by: Denies Relieved by: Denies Similar symptoms previously: No Recently seen / treated by doctor: Yes - Evaluated and treated at urgent care yesterday via telehealth appointment Notes: Patient reports that she was prescribed an antibiotic, steroids, and an inhaler. States she does not remember the name of each of the medications prescribed, as well as the diagnosis via Telehealth provider. - Related Data Allergies/Adverse Reactions: levofloxacin [From Levaquin] Allergy (Severe, Verified 12/15/16 10:35) Anaphylaxis sulfamethoxazole [From Bactrim] Allergy (Severe, Verified 12/15/16 10:35) Anaphylaxis triamcinolone acetonide [From Kenalog] Allergy (Severe, Verified 12/15/16 10:35) Anaphylaxis trimethoprim [From Bactrim] Allergy (Severe, Verified 12/15/16 10:35) Anaphylaxis cephalexin monohydrate [From Keflex] Allergy (Intermediate, Verified 12/15/16 10:35) Flushing latex [Latex] Allergy (Intermediate, Verified 12/15/16 10:35) Blisters prednisone [Prednisone] Allergy (Intermediate, Verified 12/15/16 10:35) Flushing Past Medical History - Social History Smoking Status: Never Smoker Cigarette use (# per day): No Chew tobacco use (# tins/day): No Smoking Education Provided: No Frequency of alcohol use: None Drug Abuse: None Occupation: Retired Lives with: Spouse/Significant other Family History: Reviewed & Not Pertinent Patient has suicidal ideation: No Patient has homicidal ideation: No - Past Medical History Cardiac Medical History: Reports: Hx Hypercholesterolemia, Hx Hypertension Denies: Hx Atrial Fibrillation, Hx Congestive Heart Failure, Hx Coronary Artery Disease, Hx Heart Attack, Hx Peripheral Vascular Disease, Hx Pulmonary Embolism, Hx Heart Murmur Pulmonary Medical History: Reports: Hx Asthma, Hx Bronchitis, Hx COPD, Hx Pneumonia Denies: Hx Respiratory Failure, Hx Sleep Apnea, Hx Tuberculosis Neurological Medical History: Denies: Hx Cerebrovascular Accident, Hx Seizures, Hx Parkinson's Disease Endocrine Medical History: Reports: Hx Hypothyroidism. Denies: Hx Graves' Disease, Hx Hyperthyroidism Renal/ Medical History: Reports: Hx Ovarian Cysts. Denies: Hx End Stage Renal Disease, Hx Kidney Stones, Hx Peritoneal Dialysis, Hx Pelvic Inflammatory Disease Malignancy Medical History: Denies: Hx Breast Cancer, Hx Cervical Cancer, Hx Leukemia, Hx Lung Cancer, Hx Ovarian Cancer GI Medical History: Reports: Hx Gastroesophageal Reflux Disease, Hx Hiatal Hernia, Hx Irritable Bowel. Denies: Hx Crohn's Disease, Hx Liver Failure, Hx Pancreatitis, Hx Ulcer Musculoskeletal Medical History: Reports Hx Arthritis - hands, knees, spine, Denies Hx Fibromyalgia, Denies Hx Multiple Sclerosis, Denies Hx Muscular Dystrophy, Denies Hx Systemic Lupus Erythematosus Psychiatric Medical History: Reports: Hx Bipolar Disorder, Hx Depression, Hx Post Traumatic Stress Disorder Denies: Hx Dementia, Hx Schizophrenia Traumatic Medical History: Reports: Hx Fractures Infectious Medical History: Denies: Hx HIV Past Surgical History: Reports: Hx Tonsillectomy - 1953. Denies: Hx Appendectomy, Hx Bowel Surgery, Hx Colostomy, Hx Coronary Artery Bypass Graft, Hx Gastric Bypass Surgery, Hx Hysterectomy, Hx Mastectomy, Hx Pacemaker Physical Exam - General General appearance: Other - Ill-appearing with no acute distress noted. In distress: None Notes: PHYSICAL EXAMINATION: GENERAL: Ill-appearing with no acute distress noted. HEAD: Atraumatic, normocephalic. EYES: sclera anicteric, conjunctiva are normal. ENT: nares patent. Moist mucous membranes. NECK: Normal range of motion, supple without lymphadenopathy. LUNGS: Expiratory wheezing B/L in all lung morrissey. Coarse lung sounds that clear with cough in RUL. HEART: Regular rate and rhythm without murmurs. EXTREMITIES: Normal range of motion, no pitting edema. No cyanosis. BACK: No midline or CVA tenderness. NEUROLOGICAL: Cranial nerves grossly intact. Normal speech. PSYCH: Normal mood, normal affect. SKIN: Warm, Dry, normal color and turgor, no obvious lesions or rash noted. Diagnostic Results Laboratory Results: Patient advised at this time they are considered a Person Under Investigation (PUI) for the COVID-19 Coronavirus. They have been made aware it is currently taking 3-5 days to receive their results, and [facility] Department will call to advise them of their result, whether it is POSITIVE or NEGATIVE. Patient Education/Counseling Counseling/Education: Patient presents with upper respiratory symptoms worrisome for possible COVID- 19. Patient does not have symptoms worrisome as an emergency such as difficulty breathing, shortness of breath, chest pain, pressure, confusion or cyanosis. Patient appears suitable for discharge. Patient's vital signs are stable and patient is nontoxic in appearance. Good return precautions have been discussed with patient, patient verbalized understanding and is agreeable with discharge plan of care at this time. Patient provided COVID-19 discharge instructions to include: As a person under investigation for COVID-19, the [facility], division of public health advises you to adhere to the following guidance until your test results are reported to you. If your test result is positive, you will receive additional information from your provider and your local health department at that time. Remain at home until you are cleared by the health provider or public health authorities. Keep a log of visitors to your home, notify any visitors to your home of your isolation status. If you plan to move to a new address or leave the county, notify the local health department in your County. Call your doctor or seek care if you have an urgent medical need. Before seeking medical care, call ahead to get instructions from the provider before arriving at the medical office clinic or hospital. Notify them that you are being tested for the virus that causes COVID-19 so that arrangements can be made, as necessary, to prevent transmission to others in the healthcare setting. Next, notify the local health department in your county. If a medical emergency arises and you need to call 911, inform dispatch and the first responders that you are being tested for the virus that causes COVID-19. Next, notify the local health department in your county. Guidance for worsening S/SX: For worsening symptoms, patient has been advised to contact their Primary Care Provider, or go to the nearest Emergency Department. Patient advised to take medications as prescribed. RDC Discharge - Discharge Clinical Impression: COVID-19 Screening URI (upper respiratory infection) Qualifiers: URI type: unspecified URI Qualified Code(s): J06.9 - Acute upper respiratory infection, unspecified Condition: Stable Disposition: Home; Selfcare
== END ==
LOC: RDC 12:33
PROVIDERS: ATTEND Nurse Practitioner Family
DX: Z20.828 Contact with and (suspected) exposure to other viral communicable diseases (principal); J06.9 Acute upper respiratory infection, unspecified; R50.9 Fever, unspecified; M79.10 Myalgia, unspecified site; J02.9 Acute pharyngitis, unspecified; R05 Cough; R06.02 Shortness of breath; R51 Headache; R11.2 Nausea with vomiting, unspecified; R10.9 Unspecified abdominal pain; R19.7 Diarrhea, unspecified; J34.89 Other specified disorders of nose and nasal sinuses; J44.9 Chronic obstructive pulmonary disease, unspecified; I10 Essential (primary) hypertension; E03.9 Hypothyroidism, unspecified; E78.00 Pure hypercholesterolemia, unspecified; R25.1 Tremor, unspecified; K21.9 Gastro-esophageal reflux disease without esophagitis
CPT/HCPCS: 87635; C9803; 99201; 99211

== ENCOUNTER → 2019-08-14 | Outpatient (CLI) | payer OTHER ==
--- NOTE | 2019-08-14 14:35 | RADIOLOGY REPORT (SQ) ---
EXAM DESCRIPTION: CHEST 2 VIEWS IMAGES COMPLETED DATE/TIME: 08/14/2019 2:25 pm REASON FOR STUDY: R05 COUGH COMPARISON: 04/12/2011 EXAM PARAMETERS: NUMBER OF VIEWS: two views TECHNIQUE: Digital Frontal and Lateral radiographic views of the chest acquired. RADIATION DOSE: NA LIMITATIONS: none FINDINGS: LUNGS AND PLEURA: No opacities, masses or pneumothorax. No pleural effusion. MEDIASTINUM AND HILAR STRUCTURES: No masses or contour abnormalities. HEART AND VASCULAR STRUCTURES: Heart normal size. No evidence for failure. BONES: No acute findings. HARDWARE: None in the chest. OTHER: No other significant finding. IMPRESSION: NO ACUTE RADIOGRAPHIC FINDING IN THE CHEST. TECHNICAL DOCUMENTATION: JOB ID: [id number] [employer]- All Rights Reserved Reading location - IP/workstation name: [email or web address]
== END ==
LOC: RAD 13:51
PROVIDERS: ATTEND Family Medicine
DX: R05 Cough (principal)
CPT/HCPCS: 71046

== ENCOUNTER → 2019-11-28 | Outpatient (CLI) | payer OTHER ==
[2019-11-28 13:45] LABS: ABSOLUTE EOSINOPHILS # (AUTO) 0.1 10^3/uL (0.0-0.6); ABSOLUTE LYMPHOCYTES (AUTO) 2.8 10^3/uL (0.5-4.7); ABSOLUTE MONOCYTES (AUTO) 0.3 10^3/uL (0.1-1.4); ABSOLUTE NEUT (AUTO) 3.5 10^3/uL (1.7-8.2); BASOPHILS % (AUTO) 0.4 % (0-2); EOSINOPHILS % (AUTO) 1.8 % (0-6); HEMATOCRIT 36.8 % (36.0-47.0); HEMOGLOBIN 12.5 g/dL (12.0-15.5); LYMPHOCYTES % (AUTO) 41.4 % (13-45); MEAN CORPUSCULAR HEMOGLOBIN 31.5 pg (27.0-33.4); MEAN CORPUSCULAR VOLUME 93 fl (80-97); MONOCYTES % (AUTO) 4.2 % (3-13); PLATELET COUNT 258 10^3/uL (150-450); RED BLOOD COUNT 3.97 10^6/uL (3.72-5.28); RED CELL DISTRIBUTION WIDTH 13.7 % (11.5-14.0); SEGMENTED NEUTROPHILS % (AUTO) 52.2 % (42-78); TOTAL CELLS COUNTED % (AUTO) 100 %; WHITE BLOOD COUNT 6.7 10^3/uL (4.0-10.5)
[2019-11-28 14:15] LABS: ALBUMIN 4.4 g/dL (3.5-5.0); ALKALINE PHOSPHATASE 71 U/L (38-126); ANION GAP 10 (5-19); ASPARTATE AMINO TRANSFERASE 28 U/L (14-36); BILIRUBIN,DIRECT 0.5 mg/dL (0.0-0.4); BILIRUBIN,TOTAL 0.6 mg/dL (0.2-1.3); BLOOD UREA NITROGEN 12 mg/dL (7-20); C-REACTIVE PROTEIN 10.6 mg/L (<10.0); CALCIUM 9.8 mg/dL (8.4-10.2); CARBON DIOXIDE 26 mmol/L (22-30); CHLORIDE 105 mmol/L (98-107); GLUCOSE 96 mg/dL (75-110); POTASSIUM 4.1 mmol/L (3.6-5.0); TOTAL PROTEIN 7.5 g/dL (6.3-8.2)
[2019-11-28 14:30] LABS: ERYTHROCYTE SEDIMENTATION RATE 30 mm/hr (0-30)
[2019-11-29 14:54] LABS: CRYPTOSPORIDIUM PARVUM AG NEGATIVE (NEGATIVE); GIARDIA LAMBLIA AG NEGATIVE (NEGATIVE)
== END ==
LOC: OD 12:30
PROVIDERS: ATTEND Family Medicine
DX: K52.9 Noninfective gastroenteritis and colitis, unspecified (principal)
CPT/HCPCS: 36415; 80053; 83631; 85025; 85652; 86140; 86403; 87177; 87205; 87329

== ENCOUNTER 2019-12-21 10:24 | Emergency (ER) | payer OTHER ==
--- NOTE | 2019-12-21 10:53 | ER Document Report ---
ED Extremity Problem, Lower - General Chief Complaint: Knee Pain Stated Complaint: RIGHT LEG PAIN Time Seen by Provider: 12/21/19 10:43 Primary Care Provider: [facility] [Provider Group] - Follow up as needed VIRAL ARELLANO DO [Primary Care Provider] - Follow up as needed Mode of Arrival: Ambulatory Information source: Patient Notes: 69-year-old female presents to ED for complaint of leg pain behind the right knee. She states is been increasing. Will get Doppler for the right leg. She does have a history of asthma COPD high blood pressure cholesterol multiple spinal fusion she does have osteoarthritis. Alert oriented respirations regular nonlabored speaking in full sentences walks with even steady gait. Constitutional: Negative for fever. HENT: Negative for sore throat. Eyes: Negative for visual changes. Cardiovascular: Negative for chest pain. Respiratory: Negative for shortness of breath. Gastrointestinal: Negative for abdominal pain, vomiting or diarrhea. Genitourinary: Negative for dysuria. Musculoskeletal: Negative for back pain. Pain behind the right knee and just above the knee. Patient states it is been hurting getting worse. Skin: Negative for rash. Neurological: Negative for headaches, weakness or numbness. 10 point ROS negative except as marked above and in HPI. PHYSICAL EXAMINATION: GENERAL: Well-appearing, well-nourished and in no acute distress. HEAD: Atraumatic, normocephalic. EYES: Pupils equal round extraocular movements intact, conjunctiva are normal. ENT: Nares patent NECK: Normal range of motion LUNGS: No respiratory distress Musculoskeletal: Normal range of motion, tenderness to palpation behind the right knee and just above the right knee. She is able to ambulate. NEUROLOGICAL: Normal speech, normal gait. PSYCH: Normal mood, normal affect. SKIN: Warm, Dry, normal turgor, no rashes or lesions noted. TRAVEL OUTSIDE OF THE [place] IN LAST 30 DAYS: No - HPI Patient complains to provider of: Pain Location: Leg Occurred: Other - Chronic Onset/Duration: Gradual Quality of pain: Sharp Severity: Moderate Pain Level: 4 Recent injury: No Associated symptoms: Painful ambulation Exacerbated by: Movement, Walking Relieved by: Nothing - Related Data Allergies/Adverse Reactions: levofloxacin [From Levaquin] Allergy (Severe, Verified 12/15/16 10:35) Anaphylaxis sulfamethoxazole [From Bactrim] Allergy (Severe, Verified 12/15/16 10:35) Anaphylaxis triamcinolone acetonide [From Kenalog] Allergy (Severe, Verified 12/15/16 10:35) Anaphylaxis trimethoprim [From Bactrim] Allergy (Severe, Verified 12/15/16 10:35) Anaphylaxis cephalexin monohydrate [From Keflex] Allergy (Intermediate, Verified 12/15/16 10:35) Flushing latex [Latex] Allergy (Intermediate, Verified 12/15/16 10:35) Blisters prednisone [Prednisone] Allergy (Intermediate, Verified 12/15/16 10:35) Flushing Past Medical History - General Information source: Patient - Social History Smoking Status: Never Smoker Frequency of alcohol use: Occasional Drug Abuse: None Lives with: Family Family History: Reviewed & Not Pertinent Patient has suicidal ideation: No Patient has homicidal ideation: No - Past Medical History Cardiac Medical History: Reports: Hx Hypercholesterolemia, Hx Hypertension Pulmonary Medical History: Reports: Hx Asthma, Hx Bronchitis, Hx COPD, Hx Pneumonia EENT Medical History: Reports: None Neurological Medical History: Reports: None Endocrine Medical History: Reports: Hx Hypothyroidism Renal/ Medical History: Reports: Hx Ovarian Cysts Malignancy Medical History: Reports: None GI Medical History: Reports: Hx Gastroesophageal Reflux Disease, Hx Hiatal Hernia, Hx Irritable Bowel Musculoskeletal Medical History: Reports Hx Arthritis - hands, knees, spine Psychiatric Medical History: Reports: Hx Bipolar Disorder, Hx Depression, Hx Post Traumatic Stress Disorder Traumatic Medical History: Reports: Hx Fractures Infectious Medical History: Reports: None Past Surgical History: Reports: Hx Orthopedic Surgery - Multiple back surgeries she states 5, Hx Tonsillectomy - 1953 - Immunizations Hx Diphtheria, Pertussis, Tetanus Vaccination: Yes - 03/07/04 Hx Pneumococcal Vaccination: 12/06/15 Physical Exam - Vital signs Vitals: Temp Pulse Resp BP Pulse Ox 98.4 F 72 18 154/84 H 100 12/21/19 10:28 12/21/19 10:28 12/21/19 10:28 12/21/19 10:28 12/21/19 10:28 Course - Re-evaluation Re-evalutation: 12/21/19 21:21 Discussed x-rays with patient. Patient was given instructions for elevation ice ibuprofen Tylenol and to follow-up with primary care and orthopedics. Patient verbalized understanding and agreement with treatment plan patient was discharged home. X-ray did show arthritis to the knee with no acute injuries. - Vital Signs Vital signs: Temp Pulse Resp BP Pulse Ox 98.2 F 73 17 124/67 100 12/21/19 14:32 12/21/19 14:32 12/21/19 14:32 12/21/19 14:32 12/21/19 14:32 - Diagnostic Test Radiology reviewed: Image reviewed, Reports reviewed Discharge - Discharge Clinical Impression: Right knee pain Qualifiers: Chronicity: unspecified Qualified Code(s): M25.561 - Pain in right knee Condition: Stable Disposition: HOME, SELF-CARE Additional Instructions: Arthritis Your symptoms are due to arthritis. Arthritis is an inflammation of the joints. There are many types -- osteoarthritis (due to "wear and tear"), auto- immmune arthritis (such as rheumatoid, lupus, Carlos's, and others), and crystal-induced arthritis (such as gout and pseudogout). The physician's examination, combined with laboratory tests, will determine the cause of your arthritis. All types of arthritis are treated with antiinflammatory medications. Other medication may be required for special types of arthritis, or if your problem does not respond to the antiinflammatory medicine. Local warmth may be helpful. Move the involved joints through the full range of motion daily. Mild exercise is usually still possible for most persons with arthritis (ask your physician). Swimming provides good exercise without damaging the joints. Contact the physician if you are worsening in any way. Ibuprofen Ibuprofen is an excellent, safe drug for pain control. In addition, it has potent antiinflammatory effects which are beneficial, especially in the treatment of injuries, arthritis, or tendonitis. It's best to take ibuprofen with food. Persons with ulcer disease or allergy to aspirin should notify their physician of this before taking ibuprofen. Take the medication exactly as prescribed. Don't take additional doses unless instructed to do so by your doctor. If you develop wheezing, shortness of breath, hives, faintness, stomach pain, vomiting, or dark black stools, return for re-evaluation at once. Ice Packs Apply ice packs frequently against the painful area. Many different schedules are recommended, such as "20 minutes on, 20 minutes off" or "one hour ice, two hours rest." If you need to work, you may need to go longer between ice treatments. You should plan to have the area ice packed AT LEAST one fourth of the time. The ice should be applied over the wrap, tape, or splint, or over a layer of cloth -- not directly against the skin. Some ice bags have a built-in cloth and can be put directly on the skin. Warm Packs After approximately two days, apply gentle heat (such as a heating pad or hot water bottle) for about 20 to 30 minutes about every two hours -- at least four times daily. Warmth and elevation will help you make a more rapid recov chandrika, and will ease the pain considerably. Do not use HOT heat, and never apply heat for longer than 30 minutes. The continuous heat can invisibly damage skin and muscles -- even when no burn is seen on the surface. Damaged muscles can make you MORE sore.warm FOLLOW-UP CARE: If you have been referred to a physician for follow-up care, call the physicians office for an appointment as you were instructed or within the next two days. If you experience worsening or a significant change in your symptoms, notify the physician immediately or return to the Emergency Department at any time for re-evaluation. Referrals: VIRAL ARELLANO DO [Primary Care Provider] - Follow up as needed [facility] [Provider Group] - Follow up as needed
--- NOTE | 2019-12-21 13:08 | RADIOLOGY REPORT (SQ) ---
EXAM DESCRIPTION: VENOUS UNILATERAL LOWER IMAGES COMPLETED DATE/TIME: 12/21/2019 12:52 pm REASON FOR STUDY: pain in right lower leg COMPARISON: None. TECHNIQUE: Dynamic and static alcala scale and color images acquired of the right leg venous system. S elected spectral images acquired with additional compression and augmentation maneuvers. The contrala teral common femoral vein and saphenofemoral junction were also imaged. Images stored on PACS. LIMITATIONS: None. FINDINGS: COMMON FEMORAL: Normal phasicity, compression and augmentation. No visualized echogenic ma terial on alcala scale. No defects on color images. FEMORAL: Normal compression and augmentation. No visualized echogenic material on alcala scale. No defe cts on color images. POPLITEAL: Normal compression, augmentation. No visualized echogenic material on alcala scale. No defec ts on color images. CALF VESSELS: Normal compression, augmentation. No visualized echogenic material on alcala scale. No de fects on color images. GSV and SSV: Normal compression, augmentation. No visualized echogenic material on alcala scale. No def ects on color images. ANY DEEP VENOUS INSUFFICIENCY: Not evaluated. ANY EVIDENCE OF POPLITEAL CYST: No. OTHER: No other significant finding. CONTRALATERAL COMMON FEMORAL VEIN AND SAPHENOFEMORAL JUNCTION: Normal phasicity, compression and augmentation. No visualized echogenic material on alcala scale. No de fects on color images. IMPRESSION: NO EVIDENCE OF DVT OR SVT IN THE RIGHT LEG. TECHNICAL DOCUMENTATION: JOB ID: [id number] 2010 [employer]- All Rights Reserved Reading location - IP/workstation name: [email or web address]
--- NOTE | 2019-12-21 13:38 | RADIOLOGY REPORT (SQ) ---
EXAM DESCRIPTION: KNEE RIGHT 4 VIEWS IMAGES COMPLETED DATE/TIME: 12/21/2019 1:28 pm REASON FOR STUDY: right leg pain COMPARISON: None. NUMBER OF VIEWS: Four views. TECHNIQUE: AP, lateral, and both oblique radiographic images acquired of the right knee. LIMITATIONS: None. FINDINGS: MINERALIZATION: Decreased. BONES: No acute fracture or dislocation. No worrisome bone lesions. JOINT: No effusion. No dislocation. Tricompartment osteophytosis. Mild joint space loss, greatest medially. SOFT TISSUES: No soft tissue swelling. No radio-opaque foreign body. OTHER: No other significant finding. IMPRESSION: No evidence of acute bony abnormality of the right knee. Tricompartment osteoarthritis with mild joint space loss, greatest medially. TECHNICAL DOCUMENTATION: JOB ID: [id number] 2010 [employer]- All Rights Reserved Reading location - IP/workstation name: [email or web address]
[2019-12-21 14:34] VITALS: BP 124/67
== END 2019-12-21 14:40 | disposition home or self-care (01) ==
LOC: ER 10:24
DX: M17.11 Unilateral primary osteoarthritis, right knee (principal); J44.9 Chronic obstructive pulmonary disease, unspecified; I10 Essential (primary) hypertension; Z87.892 Personal history of anaphylaxis; Z88.1 Allergy status to other antibiotic agents; Z88.8 Allergy status to other drugs, medicaments and biological substances; Z91.040 Latex allergy status
CPT/HCPCS: 93971; 99284